=== PATIENT | female | born 1995 | race Caucasian/White ===

== ENCOUNTER 2016-10-18 11:59 | Emergency (ER) | payer SELFPAY ==
[~2016-10-18] VITALS: Ht 160 cm; Wt 70.0 kg
[2016-10-18 12:02] VITALS: BP 130/80; PULSE 88; RESP 20; TEMP 98.1; O2SAT 96
[2016-10-18] MEDS ORDERED: BIRTH CONTROL (12:44)
--- NOTE | 2016-10-18 12:54 | PD ---
HPI Chief Complaint: Cold / Flu Symptoms Time Seen by Provider: 12:54 Travel History International Travel<30 days: No Contact w/Intl Traveler<30days: No Traveled to known affect area: No History of Present Illness HPI 21-year-old female coming in with sudden onset sore throat, mild difficulty swallowing, and fever of 101 last evening. Patient did have some nausea and vomiting both last night and first thing this morning. Patient denies abdominal pain however and states the vomiting is more from the mucus in her throat. Patient has mild ear pain but no headache. Patient has a history of strep in the past. She has no other constitutional symptoms. Patient has been taking ibuprofen and Tylenol with fairly good results. Patient states the pain is worse at night. She is having no difficulty swallowing food or fluids. Pain worse is 8/10 is currently 4/10 with ibuprofen. She has no known drug allergies. [facility] Past Medical History ?: Not LMP: 10/18/16 Social History Alcohol Use: Yes Tobacco Use: No Substance Use: No Allergies-Medications (Allergen,Severity, Reaction): Coded Allergies: No Known Allergies (Unverified , 10/18/16) Reported Meds & Prescriptions Reported Meds & Active Scripts Active Reported [ Control] DAILY Review of Systems Except as stated in HPI: all other systems reviewed are Neg General / Constitutional: Positive: Fever Eyes: No: Visual changes HENT: Positive: Sore Throat, Earache, No: Headaches, Vertigo, Lightheadedness , Rhinitis, Rhinorrhea, Congestion, Nosebleed, Neck Stiffness, Neck Pain Cardiovascular: No: Chest Pain or Discomfort Respiratory: No: Cough, Shortness of Breath, Wheezing Gastrointestinal: Positive: Vomiting (see history of present illness), No: Nausea, Diarrhea, Abdominal Pain, Loss of Appetite Genitourinary: No: Dysuria Musculoskeletal: No: Pain Skin: No Rash Neurologic: No: Weakness Psychiatric: No: Depression Endocrine: No: Polydipsia Hematologic/Lymphatic: No: Easy Bruising Physical Exam Narrative GENERAL: Patient appears no acute distress. SKIN: Warm and dry. Normal color. Normal turgor. HEAD: Atraumatic. Normocephalic. EYES: Pupils equal and round. No scleral icterus. No injection or drainage. ENT: No nasal bleeding or discharge. Mucous membranes pink and moist. TMs are somewhat dull bilaterally no injection. Pharynx shows beefy red tonsils bilaterally with whitish exudate. There is some white lesions in the soft palate. Uvula is midline. Airway is patent currently. No sinus tenderness. NECK: Trachea midline. Neck is supple with moderate bilateral anterior lymphadenopathy. CARDIOVASCULAR: Regular rate and rhythm. No murmurs gallops or rubs. RESPIRATORY: No accessory muscle use. Clear to auscultation. Breath sounds equal bilaterally. GASTROINTESTINAL: Abdomen soft, non-tender, nondistended. Hepatic and splenic margins not palpable. No CVA tenderness. MUSCULOSKELETAL: Extremities without clubbing, cyanosis, or edema. No obvious deformities. NEUROLOGICAL: Awake and alert. No obvious cranial nerve deficits. Motor grossly within normal limits. Five out of 5 muscle strength in the arms and legs. Normal speech. PSYCHIATRIC: Appropriate mood and affect; insight and judgment normal. Data Data Last Documented VS Vital Signs Date Time Temp Pulse Resp B/P Pulse Ox O2 Delivery O2 Flow Rate FiO2 10/18/16 12:02 98.1 88 20 130/80 96 Room Air MDM Medical Decision Making Medical Screen Exam Complete: Yes Emergency Medical Condition: Yes Differential Diagnosis Strep pharyngitis. Early tonsillar abscess. Possible mild. Fever. Narrative Course Patient is medically stable at time of exam. Patient has classic signs and symptoms of strep therefore further medical testing is not felt warranted. Patient is treated with amoxicillin 875 twice a day 10 days. Patient is given ibuprofen 600 mg 4 times a day #40. Patient is given Magic mouthwash to be used as needed for throat pain. Patient is to use ice chips and popsicles remotely to help with the swelling. Patient is given a note for work. Patient should return to emergency department if worsening symptoms develop as discussed. Diagnosis Primary Impression: Strep pharyngitis Patient Instructions: General Instructions, Strep Throat (ED) Departure Forms: Work Release Enter return to work date: Oct 19, 2016 Additional Instructions: Patient has classic signs and symptoms of strep therefore further medical testing is not felt warranted. Patient is treated with amoxicillin 875 twice a day 10 days. Patient is given ibuprofen 600 mg 4 times a day #40. Patient is given Magic mouthwash to be used as needed for throat pain. Patient is to use ice chips and popsicles remotely to help with the swelling. Patient is given a note for work. Patient should return to emergency department if worsening symptoms develop as discussed. Med/Other Pt SpecificInfo: Prescription(s) given Disposition: 01 DISCHARGE HOME Condition: Stable Keon Mccracken Oct 18, 2016 12:54
[2016-10-18] MEDS ORDERED: MAGICADU2 SWISH-SWAL (13:13)
[2016-10-18] MEDS ORDERED: AMOX875T PO (13:13)
[2016-10-18] MEDS ORDERED: IBUP-232 PO (13:13)
== END 2016-10-18 14:24 | disposition home or self-care (01) ==
LOC: NEPB 11:59
DX: J02.0 Streptococcal pharyngitis (principal); H92.09 Otalgia, unspecified ear
CPT/HCPCS: 99283